=== PATIENT | female | born 2000 | race Caucasian/White ===

== ENCOUNTER 2022-03-25 07:43 | Observation (INO) | payer MEDICAID ==
[~2022-03-25 07:43] MED LIST: BUPR100T71 PO; TOPI100T29 PO; ZOLP10TA PO
[2022-03-25] MEDS ORDERED: LACTATED RINGER'S 1,000 ML IV ONE (08:45)
[2022-03-25] MEDS ORDERED: ONDANSETRON HCL 4 MG/2 ML VIAL IM ONE (08:45)
[2022-03-25] MEDS ORDERED: ONDANSETRON HCL 4 MG/2 ML VIAL ONE (09:20)
[2022-03-25 09:25] LABS: Basophils # (auto) 0 10 ^3/uL (0-0.2); Basophils % (auto) 0.4 % (0.0-2.0); Eosinophils # (auto) 0 10 ^3/uL (0-0.8); Eosinophils % (auto) 0.1 % (0.0-7.0); Hematocrit 32.4 % (36.0-46.0); Hemoglobin 11.5 g/dL (12.2-16.2); Lymphocytes # (auto) 0.9 10 ^3/uL (0.4-5.4); Lymphocytes % (auto) 7.8 % (10.0-50.0); Mean Corpuscular Hemoglobin 32.4 pg (28.0-32.0); Mean Corpuscular Hgb Conc. 35.4 g/dL (32.0-36.0); Mean Corpuscular Volume 91.7 fL (80.0-100.0); Monocytes # (auto) 0.8 10 ^3/uL (0-1.3); Monocytes % (auto) 6.8 % (0.0-12.0); Neutrophils # (auto) 9.5 10 ^3/uL (1.6-8.6); Neutrophils % (auto) 84.9 % (37.0-80.0); Red Blood Cells 3.54 10^6/uL (4.0-5.20); Red Cell Distribution Width 12.6 % (11.8-14.3); White Blood Cell 11.2 10^3/uL (4.4-10.8)
[2022-03-25 09:29] LABS: Albumin 2.8 g/dL (3.4-5.0); Calcium 8.2 mg/dL (8.5-10.1)
[2022-03-25 09:32] LABS: BUN/Creatinine Ratio 13.5; Bilirubin, Total 0.9 mg/dL (0.2-1.0); Total Protein 6.7 g/dL (6.4-8.2); Uric Acid 5.6 mg/dL (2.6-6.0)
[2022-03-25 09:35] LABS: Potassium 2.7 mmol/L (3.5-5.1)
[2022-03-25] MEDS ORDERED: POTASSIUM CHL 20MEQ/100ML 100 ML IV ONE ×2 (09:45→10:00)
[2022-03-25 10:31] LABS: INR 1.02 (0.9-1.15); Partial Thromboplastin Time 27.4 sec (23.6-33.0)
[2022-03-25 10:35] LABS: Urine Bacteria NONE SEEN /hpf (None Seen); Urine Blood Negative /uL (Negative); Urine Mucus FEW (None Seen); Urine WBC 4 /hpf (0 - 5)
[2022-03-25 10:39] LABS: Alcohol, Urine < 3.0 mg/dL (0-10); Amphetamine Screen, Urine NEGATIVE (NEGATIVE); Barbiturate Scree,Urine NEGATIVE (NEGATIVE); Benzodiazephine Screen, Urine NEGATIVE (NEGATIVE); Cannabinoid Screen, Urine POSITIVE (NEGATIVE); Cocaine Screen, Urine NEGATIVE (NEGATIVE); Opiate Scree,Urine NEGATIVE (NEGATIVE); Phencyclidine Screen, Urine NEGATIVE (NEGATIVE)
[2022-03-25 10:40] LABS: Protein, Urine 81.4 mg/dL (0.0-11.9)
== END 2022-03-25 12:30 | disposition home or self-care (01) ==
LOC: LDRP 07:43
PROVIDERS: ADMIT Obstetrics & Gynecology; ATTEND Obstetrics & Gynecology
DX: O21.2 Late vomiting of pregnancy (principal); O26.893 Other specified pregnancy related conditions, third trimester; R10.2 Pelvic and perineal pain; Z3A.35 35 weeks gestation of pregnancy; Z79.899 Other long term (current) drug therapy
CPT/HCPCS: 36415; 59025; 80053; 80307; 81001; 81002; 82570; 83615; 84156; 84550; 85025; 85362; 85379; 85384; 85610; 85730; 94760; 96360; 96361; 96372; G0378; J2405; J3480; 96366

== ENCOUNTER 2022-03-26 04:11 | Observation (INO) | payer MEDICAID ==
[~2022-03-26] VITALS: Ht 165.1 cm; Wt 86.1 kg
[2022-03-26] MEDS ORDERED: LACTATED RINGER'S 1,000 ML IV ONE (05:00)
[2022-03-26] MEDS ORDERED: ONDANSETRON HCL 4 MG/2 ML VIAL IV ONE (05:15)
[2022-03-26 07:18] LABS: Albumin 2.3 g/dL (3.4-5.0); Calcium 7.7 mg/dL (8.5-10.1)
[2022-03-26 07:21] LABS: BUN/Creatinine Ratio 12.1; Bilirubin, Total 1.3 mg/dL (0.2-1.0); Total Protein 5.6 g/dL (6.4-8.2)
[2022-03-26 07:43] LABS: Potassium 2.5 mmol/L (3.5-5.1)
[2022-03-26 08:38] LABS: Urine Bacteria NONE SEEN /hpf (None Seen); Urine Blood Negative /uL (Negative); Urine Mucus FEW (None Seen); Urine Specific Gravity 1.018 (1.001-1.035); Urine WBC 7 /hpf (0 - 5)
== END 2022-03-26 08:18 | disposition home or self-care (01) ==
LOC: LDRP 04:11
PROVIDERS: ADMIT Obstetrics & Gynecology; ATTEND Obstetrics & Gynecology
DX: O21.0 Mild hyperemesis gravidarum (principal); O62.9 Abnormality of forces of labor, unspecified; O21.2 Late vomiting of pregnancy; O26.893 Other specified pregnancy related conditions, third trimester; R51.9 Headache, unspecified; Z3A.35 35 weeks gestation of pregnancy; Z98.891 History of uterine scar from previous surgery
CPT/HCPCS: 36415; 59025; 80053; 81001; 81002; 94760; 96361; 96374; G0378; J2405; 96360

== ENCOUNTER 2023-08-25 11:14 | Emergency (ER) | payer MEDICAID ==
[~2023-08-25] VITALS: Ht 165.1 cm; Wt 75.1 kg
[2023-08-25 11:18] VITALS: BP 166/87; PULSE 88; RESP 18; O2SAT 96
[2023-08-25 12:52] LABS: Basophils # (auto) 0.1 10 ^3/uL (0-0.2); Eosinophils # (auto) 0.5 10 ^3/uL (0-0.8); Eosinophils % (auto) 6.7 % (0.0-7.0); Hematocrit 42.1 % (36.0-46.0); Hemoglobin 14.3 g/dL (12.2-16.2); Lymphocytes % (auto) 41.7 % (10.0-50.0); Mean Corpuscular Hemoglobin 31.6 pg (28.0-32.0); Mean Corpuscular Volume 93.1 fL (80.0-100.0); Monocytes # (auto) 0.5 10 ^3/uL (0-1.3); Monocytes % (auto) 6.8 % (0.0-12.0); Neutrophils # (auto) 3.1 10 ^3/uL (1.6-8.6); Neutrophils % (auto) 43.8 % (37.0-80.0); Red Blood Cells 4.52 10^6/uL (4.0-5.20); Red Cell Distribution Width 12.9 % (11.8-14.3); White Blood Cell 7.1 10^3/uL (4.4-10.8)
[2023-08-25] MEDS ORDERED: ACETAMINOPHEN 650 mg PER 20.3 mL UD PO ONE (13:15)
[2023-08-25 13:25] LABS: Alanine Aminotransferase 30 U/L (7-40); Albumin 4.8 g/dL (3.2-4.8); Alkaline Phosphatase 63 U/L (46-116); Anion Gap 7 (5-15); Aspartate Aminotransferase 16 U/L (13-40); BUN/Creatinine Ratio 8.8 (10.0-20.0); Bilirubin, Total 0.6 mg/dL (0.2-1.0); Blood Urea Nitrogen 6 mg/dL (9-23); Calcium 9.7 mg/dL (8.5-10.1); Carbon Dioxide 24 mmol/L (20-30); Chloride 109 mmol/L (98-107); Glucose 87 mg/dL (74-106); Potassium 4.1 mmol/L (3.5-5.1); Sodium 140 mmol/L (136-145); Total Protein 7.3 g/dL (5.7-8.2)
[2023-08-25 13:29] LABS: Urine Bacteria FEW /hpf (None Seen); Urine Blood 3+ /uL (Negative); Urine Clarity HAZY (Clear); Urine Color Yellow (Yellow); Urine Protein, UAD TRACE (Negative); Urine Specific Gravity 1.008 (1.001-1.035); Urine Urobilinogen Normal (Negative); Urine WBC 2 /hpf (0 - 5); Urine pH 6.5 (5.0-8.0)
== END 2023-08-25 13:31 | disposition left against medical advice (07) ==
LOC: ER 11:14
DX: O26.892 Other specified pregnancy related conditions, second trimester (principal); R10.2 Pelvic and perineal pain; O21.8 Other vomiting complicating pregnancy; Z88.0 Allergy status to penicillin; Z88.1 Allergy status to other antibiotic agents; Z88.6 Allergy status to analgesic agent; Z3A.19 19 weeks gestation of pregnancy
CPT/HCPCS: 36415; 80053; 81001; 84702; 85025

== ENCOUNTER 2024-09-08 00:14 | Emergency (ER) | payer MEDICAID ==
[~2024-09-08] VITALS: Ht 165.1 cm; Wt 72.6 kg
[2024-09-08] MEDS: LIDOCAINE 1% HCL (LOCAL ANESTH.) INJ 20ML MDV IJ ONE (00:59)
[2024-09-08] MEDS: LIDOCAINE 1% HCL (LOCAL ANESTH.) INJ 20ML MDV ONE (01:00)
[2024-09-08] MEDS: KETOROLAC TROMETH 30 MG/ML 1ML VIAL IM ONE (01:00)
[2024-09-08 01:04] VITALS: BP 141/75; PULSE 105; RESP 16; TEMP 98.2; O2SAT 98
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
[2024-09-08] MEDS: TETANUS-DIPTH-ACEL PERTUSSIS 0.5ML SYR Tdap IM ONE (01:22)
[2024-09-08] MEDS: HYDROcodone-ACET 5/325MG TAB PO ONE (01:36)
== END 2024-09-08 02:12 | disposition home or self-care (01) ==
LOC: ER 00:14 → EDBD 00:14 → ER 02:12
DX: S61.512A Laceration without foreign body of left wrist, initial encounter (principal); Z88.0 Allergy status to penicillin; Z88.1 Allergy status to other antibiotic agents; Z88.5 Allergy status to narcotic agent; W26.8XXA Contact with other sharp object(s), not elsewhere classified, initial encounter; Y93.89 Activity, other specified; Y92.89 Other specified places as the place of occurrence of the external cause; Y99.8 Other external cause status
CPT/HCPCS: 12002; 90471; 90715; 96372; 99284; J1885; J2003